=== PATIENT | female | born 1975 | race African-American/Black ===

== ENCOUNTER 2016-11-20 23:43 | Inpatient (IN) | payer MEDICAID, OTHER ==
[~2016-11-20] VITALS: Ht 160 cm; Wt 96.2 kg
[2016-11-21] VITALS (17 sets, daily range): BP systolic 98–118; BP diastolic 52–76
[2016-11-21] MEDS ORDERED: PANTOPRAZOLE SODIUM 40 MG/VIAL IV STA (00:17)
[2016-11-21] MEDS ORDERED: SODIUM CHLORIDE 0.9% 1,000 ML IV ONE (00:17)
[2016-11-21] MEDS ORDERED: MORPHINE SULFATE 4 MG/ML CPJ (NOT FOR IM USE) IV STA (00:17)
[2016-11-21] MEDS ORDERED: ONDANSETRON HCL 4MG/2ML VIAL IV STA (00:17)
[2016-11-21 00:47] LABS: BASOPHILS % 0.5 % (0.0-2.0); HEMATOCRIT. 21.1 % (36.0-48.0); LYMPHOCYTES % 24.5 % (20.0-50.0); MEAN CORPUSCULAR HEMOGLOBIN 28.3 pg (28.0-32.0); MEAN CORPUSCULAR VOLUME 86.2 fL (81.0-99.0); MEAN PLATELET VOLUME 11.1 fl (7.4-10.4); MONOCYTES % 5.3 % (2.0-8.0); NEUTROPHILS % 69.7 % (40.0-76.0); PLATELET 145 x1000/uL (130-400); RED BLOOD CELL COUNT 2.45 mill/uL (4.2-5.4)
[2016-11-21 00:50] LABS: HEMOGLOBIN. 6.9 g/dL (12.0-16.0)
[2016-11-21 00:54] LABS: CHLORIDE 96 mEq/L (98-107)
[2016-11-21 00:55] LABS: INR 1.6; PROTHROMBIN TIME 17.1 sec (9.4-11.6)
[2016-11-21 01:02] LABS: CARBON DIOXIDE 21 mEq/L (21-32)
[2016-11-21] MEDS ORDERED: SODIUM CHLORIDE 0.9% 1,000 ML IV SCH ×2 (01:05→16:04)
[2016-11-21] MEDS: PANTOPRAZOLE SODIUM 40 MG/VIAL IV SCH (08:31)
[2016-11-21] MEDS ORDERED: DEXT 5%/0.45% NACL 1000ML 1,000 ML IV SCH (08:45)
[2016-11-21 10:03] LABS: BASOPHILS % 0.4 % (0.0-2.0); HEMATOCRIT. 24.7 % (36.0-48.0); HEMOGLOBIN. 8.3 g/dL (12.0-16.0); LYMPHOCYTES % 19.4 % (20.0-50.0); MEAN CORPUSCULAR HEMOGLOBIN 28.4 pg (28.0-32.0); MEAN CORPUSCULAR VOLUME 84.3 fL (81.0-99.0); MEAN PLATELET VOLUME 10.9 fl (7.4-10.4); MONOCYTES % 6.5 % (2.0-8.0); NEUTROPHILS % 73.7 % (40.0-76.0); PLATELET 105 x1000/uL (130-400); RED BLOOD CELL COUNT 2.93 mill/uL (4.2-5.4); RED CELL DISTRIBUTION WIDTH 15.7 % (11.6-14.6)
[2016-11-21 10:12] LABS: CARBON DIOXIDE 25 mEq/L (21-32); CHLORIDE 102 mEq/L (98-107)
[2016-11-21] MEDS ORDERED: SIMETHICONE 40 MG/0.6 ML 30ML ONE (11:28)
[2016-11-21] MEDS ORDERED: SODIUM CHLORIDE 0.9% 10ML VIAL ONE (11:28)
[2016-11-21] MEDS ORDERED: INFLUENZA VIRUS VACCINE 0.5ML SYR IM ONE (12:00)
[2016-11-21] MEDS ORDERED: FENTANYL CITRATE/PF 50MCG/ML 2ML VIAL ONE (15:01)
[2016-11-21] MEDS ORDERED: MIDAZOLAM HCL 5 MG/5 ML VIAL ONE ×3 (15:02→17:23)
[2016-11-21] MEDS ORDERED: DIPHENHYDRAMINE 50MG/ML VIAL ONE (15:02)
[2016-11-21] MEDS ORDERED: SUCCINYLCHOLINE CHLORIDE 200MG/10ML VIAL IV ONE (15:38)
[2016-11-21] MEDS ORDERED: PROPOFOL 200MG/20ML VIAL IV ONE (15:38)
[2016-11-21] MEDS ORDERED: LIDOCAINE HCL 1% 20ML VIAL (Pyxis) INJ ONE (15:38)
[2016-11-21] MEDS ORDERED: ONDANSETRON HCL 4MG/2ML VIAL IV PRN (16:15)
[2016-11-21] MEDS: HYDROMORPHONE HCL/PF 2MG/ML CPJ IV PRN ×2 (17:12→17:22)
[2016-11-21] MEDS ORDERED: MIDAZOLAM HCL 5 MG/5 ML VIAL IV ONE (17:14)
[2016-11-21] MEDS: PROPOFOL 10MG/ML 100ML 100 ML IV PRN (17:47)
[2016-11-21 18:21] LABS: BG CARBOXYHEMOGLOBIN 0.3 % (0.5-1.5); BG DEOXYHEMOGLOBIN 1.2 % (0.0-5.0); BG FRACTION INSPIRED OXYGEN 100; BG HCO3 ACT 19.4 mmol/L (22.0-26.0); BG OXYGEN SATURATION 98.8 % (92.0-98.5); BG OXYHEMOGLOBIN 97.5 % (94.0-97.0); BG PCO2 32.9 mmHg (35.0-45.0); BG PH 7.389 (7.350-7.450); BG PO2 368.2 mmHg (75.0-100.0); BG SAMPLE SITE RIGHT RADIAL; BG TIDAL VOLUME(mL) 500 mL; BG TOTAL HEMOGLOBIN 7.9 g/dL (12.0-18.0); BG VENT MODE VENT - A/C; BG VENT RATE 12 set
[2016-11-21] MEDS ORDERED: PROPOFOL 10MG/ML 100ML 100 ML IV PRN (20:45)
[2016-11-21] MEDS ORDERED: PANTOPRAZOLE SODIUM 40 MG/VIAL IV NR (20:45)
[2016-11-21] MEDS: DEXT 5%/0.9% NACL 1,000 ML IV SCH (21:47)
[2016-11-22] VITALS (45 sets, daily range): BP systolic 96–152; BP diastolic 64–122
[2016-11-22] MEDS: PROPOFOL 10MG/ML 100ML 100 ML IV PRN (02:09)
[2016-11-22 04:57] LABS: BASOPHILS % 0.3 % (0.0-2.0); EOSINOPHILS % 0.2 % (0.0-5.0); HEMATOCRIT. 28.3 % (36.0-48.0); HEMOGLOBIN. 9.9 g/dL (12.0-16.0); LYMPHOCYTES % 23.1 % (20.0-50.0); MEAN CORPUSCULAR HEMOGLOBIN 29.7 pg (28.0-32.0); MEAN PLATELET VOLUME 11.2 fl (7.4-10.4); MONOCYTES % 7.2 % (2.0-8.0); NEUTROPHILS % 69.2 % (40.0-76.0); PLATELET 99 x1000/uL (130-400); RED BLOOD CELL COUNT 3.32 mill/uL (4.2-5.4); RED CELL DISTRIBUTION WIDTH 15.1 % (11.6-14.6)
[2016-11-22 05:18] LABS: CARBON DIOXIDE 25 mEq/L (21-32); CHLORIDE 102 mEq/L (98-107); TOTAL IRON BINDING CAPACITY 170 ug/dL (250-450)
[2016-11-22 07:53] LABS: PHOSPHORUS 3.1 mg/dL (2.5-4.9)
[2016-11-22 08:54] LABS: BG BASE EXCESS -2.2 mmol/L (-2.0-2.0); BG CARBOXYHEMOGLOBIN 0.3 % (0.5-1.5); BG FRACTION INSPIRED OXYGEN 30; BG HCO3 ACT 20.2 mmol/L (22.0-26.0); BG METHEMOGLOBIN 0.3 % (0.0-1.5); BG OXYHEMOGLOBIN 96.4 % (94.0-97.0); BG PCO2 27.3 mmHg (35.0-45.0); BG PH 7.488 (7.350-7.450); BG PO2 94.1 mmHg (75.0-100.0); BG SAMPLE SITE RIGHT BRACHIAL; BG TIDAL VOLUME(mL) 450 mL; BG TOTAL HEMOGLOBIN 10.5 g/dL (12.0-18.0); BG VENT MODE VENT - A/C; BG VENT RATE 12 set
[2016-11-22 10:06] LABS: CLARITY URINE CLEAR (CLEAR); COLOR URINE DARK YELLOW (YELLOW); GLUCOSE URINE NEGATIVE (NEGATIVE); KETONES URINE NEGATIVE (NEGATIVE); LEUKOCYTE ESTERASE URINE TRACE (NEGATIVE); NITRITE URINE NEGATIVE (NEGATIVE); OCCULT BLOOD URINE NEGATIVE (NEGATIVE); PH URINE 5.5 (4.5-8.0); PROTEIN URINE NEGATIVE (NEGATIVE); SPECIFIC GRAVITY URINE 1.022 (1.005-1.030)
[2016-11-22] MEDS: PANTOPRAZOLE SODIUM 40 MG/VIAL IV SCH ×2 (10:07→20:14)
[2016-11-22] MEDS: DEXT 5%/0.9% NACL 1,000 ML IV SCH ×2 (10:08→19:29)
[2016-11-22 10:15] LABS: *AMPHETAMINES SCREEN URINE NEGATIVE (NEGATIVE); *BARBITURATES SCREEN URINE NEGATIVE (NEGATIVE); *COCAINE SCREEN URINE NEGATIVE (NEGATIVE); METHADONE URINE SCREEN NEGATIVE (NEGATIVE); PHENCYCLIDINE URINE SCREEN NEGATIVE (NEGATIVE)
[2016-11-22] MEDS ORDERED: PIPERACILLIN/TAZ 3.375G PREMIX 50 ML IV SCH (10:15)
[2016-11-22] MEDS: QUETIAPINE FUMARATE 25MG TABLET PO SCH ×2 (10:15→20:01)
[2016-11-22 10:16] LABS: *BENZODIAZEPINES SCREEN URINE PRESUMTIVE POSITIVE (NEGATIVE); OPIATES URINE SCREEN PRESUMTIVE POSITIVE (NEGATIVE)
[2016-11-22 10:16] LABS: AMMONIA 302 uMol/L (<32)
[2016-11-22 10:17] LABS: CANNABINOID URINE SCREEN PRESUMTIVE POSITIVE (NEGATIVE)
[2016-11-22] MEDS: OCTREOTIDE 1,000 MCG in SODIUM CHLORIDE 0.9% 98 ML IV SCH (11:32)
[2016-11-22] MEDS: FENTANYL CITRATE/PF 500 MCG in SODIUM CHLORIDE 0.9% 40 ML IV PRN ×4 (11:33→20:50)
[2016-11-22] MEDS ORDERED: OCTREOTIDE ACETATE 100 MCG/ML 1ML IV SCH (12:00)
[2016-11-22] MEDS: LORAZEPAM 2MG/ML CPJ IV PRN ×2 (12:16→18:21)
[2016-11-22] MEDS: LEVOFLOXACIN 500MG PREMIX 100 ML IV SCH (12:16)
[2016-11-22] MEDS ORDERED: LACTULOSE 300 ML in WATER FOR INJECTION,STERILE 700 ML PR SCH (13:00)
[2016-11-22] MEDS: METRONIDAZOLE 500 MG PREMIX 100 ML IV SCH ×2 (13:04→21:05)
[2016-11-22 13:16] LABS: HEPATITIS B SURFACE ANTIGEN NEGATIVE
[2016-11-22 13:44] LABS: HEPATITIS B CORE AB IGM NEGATIVE
[2016-11-22 13:46] LABS: HEPATITIS A AB IGM NEGATIVE (NEGATIVE)
[2016-11-22 15:27] LABS: HEMATOCRIT 29.6 % (36.0-48.0); HEMOGLOBIN 10.1 g/dL (12.0-16.0)
[2016-11-22] MEDS: IPRATROPIUM/ALBUTEROL 0.5-3(2.5)MG/3ML NEB HHN PRN (20:05)
[2016-11-23] VITALS (49 sets, daily range): BP systolic 125–159; BP diastolic 80–111
[2016-11-23 00:01] LABS: HEMATOCRIT 30.2 % (36.0-48.0); HEMOGLOBIN 10.4 g/dL (12.0-16.0)
[2016-11-23] MEDS: LORAZEPAM 2MG/ML CPJ IV PRN ×3 (00:19→21:05)
[2016-11-23] MEDS: FENTANYL 500 MCG in SODIUM CHLORIDE 0.9% 50 ML IV PRN ×3 (01:03→20:25)
[2016-11-23] MEDS: DEXT 5%/0.9% NACL 1,000 ML IV SCH ×3 (02:11→18:10)
[2016-11-23] MEDS: OCTREOTIDE 1,000 MCG in SODIUM CHLORIDE 0.9% 98 ML IV SCH (04:01)
[2016-11-23] MEDS: METRONIDAZOLE 500 MG PREMIX 100 ML IV SCH ×3 (05:23→21:05)
[2016-11-23 06:19] LABS: BASOPHILS % 0.4 % (0.0-2.0); EOSINOPHILS % 0.2 % (0.0-5.0); HEMATOCRIT. 28.3 % (36.0-48.0); HEMOGLOBIN. 9.6 g/dL (12.0-16.0); LYMPHOCYTES % 16.6 % (20.0-50.0); MEAN CORPUSCULAR HEMOGLOBIN 29.8 pg (28.0-32.0); MEAN CORPUSCULAR VOLUME 88.1 fL (81.0-99.0); MEAN PLATELET VOLUME 10.6 fl (7.4-10.4); MONOCYTES % 10.4 % (2.0-8.0); NEUTROPHILS % 72.4 % (40.0-76.0); PLATELET 143 x1000/uL (130-400); RED BLOOD CELL COUNT 3.21 mill/uL (4.2-5.4); RED CELL DISTRIBUTION WIDTH 15.5 % (11.6-14.6)
[2016-11-23 06:20] LABS: CARBON DIOXIDE 22 mEq/L (21-32); CHLORIDE 108 mEq/L (98-107)
[2016-11-23] MEDS: QUETIAPINE FUMARATE 25MG TABLET PO SCH ×2 (08:36→20:44)
[2016-11-23] MEDS: PANTOPRAZOLE SODIUM 40 MG/VIAL IV SCH ×2 (08:37→20:24)
[2016-11-23] MEDS: LACTULOSE 300 ML in WATER FOR INJECTION,STERILE 700 ML PR SCH (08:49)
[2016-11-23] MEDS: IPRATROPIUM/ALBUTEROL 0.5-3(2.5)MG/3ML NEB HHN PRN (09:21)
[2016-11-23 09:24] LABS: BG BASE EXCESS -1.2 mmol/L (-2.0-2.0); BG CARBOXYHEMOGLOBIN 0.3 % (0.5-1.5); BG DEOXYHEMOGLOBIN 4.5 % (0.0-5.0); BG FRACTION INSPIRED OXYGEN 30; BG HCO3 ACT 22.5 mmol/L (22.0-26.0); BG METHEMOGLOBIN 0.1 % (0.0-1.5); BG OXYGEN SATURATION 95.5 % (92.0-98.5); BG OXYHEMOGLOBIN 95.1 % (94.0-97.0); BG PCO2 33.9 mmHg (35.0-45.0); BG PO2 86.2 mmHg (75.0-100.0); BG SAMPLE SITE RIGHT RADIAL; BG TIDAL VOLUME(mL) 450 mL; BG TOTAL HEMOGLOBIN 9.9 g/dL (12.0-18.0); BG VENT MODE VENT - A/C; BG VENT RATE 12 set
[2016-11-23 09:47] LABS: AMMONIA 147 uMol/L (<32)
[2016-11-23] MEDS: LEVOFLOXACIN 500MG PREMIX 100 ML IV SCH (12:11)
[2016-11-23 14:40] LABS: HEMATOCRIT 27.5 % (36.0-48.0); HEMOGLOBIN 9.3 g/dL (12.0-16.0)
[2016-11-24] VITALS (57 sets, daily range): BP systolic 119–173; BP diastolic 87–129
[2016-11-24] MEDS: DEXT 5%/0.9% NACL 1,000 ML IV SCH ×3 (01:56→17:08)
[2016-11-24] MEDS: OCTREOTIDE 1,000 MCG in SODIUM CHLORIDE 0.9% 98 ML IV SCH (01:56)
[2016-11-24] MEDS: FENTANYL 500 MCG in SODIUM CHLORIDE 0.9% 50 ML IV PRN ×3 (03:54→19:42)
[2016-11-24] MEDS: METRONIDAZOLE 500 MG PREMIX 100 ML IV SCH ×3 (05:33→20:59)
[2016-11-24] MEDS: LORAZEPAM 2MG/ML CPJ IV PRN ×4 (05:39→22:09)
[2016-11-24 06:12] LABS: BASOPHILS % 0.6 % (0.0-2.0); EOSINOPHILS % 0.5 % (0.0-5.0); HEMATOCRIT. 31.2 % (36.0-48.0); HEMOGLOBIN. 10.2 g/dL (12.0-16.0); LYMPHOCYTES % 16.3 % (20.0-50.0); MEAN CORPUSCULAR HEMOGLOBIN 29.9 pg (28.0-32.0); MEAN CORPUSCULAR VOLUME 91.3 fL (81.0-99.0); MEAN PLATELET VOLUME 10.9 fl (7.4-10.4); MONOCYTES % 13.7 % (2.0-8.0); NEUTROPHILS % 68.9 % (40.0-76.0); PLATELET 133 x1000/uL (130-400); RED BLOOD CELL COUNT 3.42 mill/uL (4.2-5.4); RED CELL DISTRIBUTION WIDTH 16.6 % (11.6-14.6)
[2016-11-24 06:43] LABS: CHLORIDE 113 mEq/L (98-107)
[2016-11-24 06:54] LABS: CARBON DIOXIDE 22 mEq/L (21-32)
[2016-11-24 07:10] LABS: AMMONIA 91 uMol/L (<32)
[2016-11-24] MEDS: QUETIAPINE FUMARATE 25MG TABLET PO SCH ×2 (09:00→21:00)
[2016-11-24] MEDS: PANTOPRAZOLE SODIUM 40 MG/VIAL IV SCH ×2 (09:07→20:59)
[2016-11-24 09:09] LABS: BG BASE EXCESS -2.9 mmol/L (-2.0-2.0); BG CARBOXYHEMOGLOBIN 0.3 % (0.5-1.5); BG DEOXYHEMOGLOBIN 4.5 % (0.0-5.0); BG FRACTION INSPIRED OXYGEN 30; BG HCO3 ACT 21.8 mmol/L (22.0-26.0); BG METHEMOGLOBIN 0.3 % (0.0-1.5); BG OXYGEN SATURATION 95.5 % (92.0-98.5); BG OXYHEMOGLOBIN 94.9 % (94.0-97.0); BG PCO2 37.5 mmHg (35.0-45.0); BG PH 7.383 (7.350-7.450); BG PO2 82.7 mmHg (75.0-100.0); BG SAMPLE SITE RIGHT RADIAL; BG TIDAL VOLUME(mL) 450 mL; BG TOTAL HEMOGLOBIN 9.9 g/dL (12.0-18.0); BG VENT MODE VENT - A/C; BG VENT RATE 12 set
[2016-11-24] MEDS: IPRATROPIUM/ALBUTEROL 0.5-3(2.5)MG/3ML NEB HHN PRN (09:19)
[2016-11-24] MEDS ORDERED: LIDOCAINE HCL 1% 20ML VIAL (Pyxis) INJ ONE (10:00)
[2016-11-24] MEDS: LEVOFLOXACIN 500MG PREMIX 100 ML IV SCH (11:13)
[2016-11-24] MEDS: LACTULOSE 300 ML in WATER FOR INJECTION,STERILE 700 ML PR SCH (11:20)
[2016-11-24] MEDS ORDERED: FAT EMULSIONS 500 ML IV SCH (21:00)
[2016-11-25] VITALS (48 sets, daily range): BP systolic 121–167; BP diastolic 80–121
[2016-11-25] MEDS: OCTREOTIDE 1,000 MCG in SODIUM CHLORIDE 0.9% 98 ML IV SCH ×2 (00:18→18:15)
[2016-11-25] MEDS: DEXT 5%/0.9% NACL 1,000 ML IV SCH ×3 (00:41→17:32)
[2016-11-25] MEDS: LORAZEPAM 2MG/ML CPJ IV PRN ×3 (01:48→14:53)
[2016-11-25] MEDS: FENTANYL 500 MCG in SODIUM CHLORIDE 0.9% 50 ML IV PRN (02:37)
[2016-11-25] MEDS: METRONIDAZOLE 500 MG PREMIX 100 ML IV SCH ×3 (04:52→21:24)
[2016-11-25 06:54] LABS: CARBON DIOXIDE 20 mEq/L (21-32); CHLORIDE 117 mEq/L (98-107)
[2016-11-25 07:49] LABS: BASOPHILS % 0.4 % (0.0-2.0); EOSINOPHILS % 0.8 % (0.0-5.0); HEMATOCRIT. 26.5 % (36.0-48.0); LYMPHOCYTES % 23.1 % (20.0-50.0); MEAN CORPUSCULAR HEMOGLOBIN 30.4 pg (28.0-32.0); MEAN CORPUSCULAR VOLUME 89.3 fL (81.0-99.0); MEAN PLATELET VOLUME 9.5 fl (7.4-10.4); MONOCYTES % 14.8 % (2.0-8.0); NEUTROPHILS % 60.9 % (40.0-76.0); PLATELET 124 x1000/uL (130-400); RED BLOOD CELL COUNT 2.96 mill/uL (4.2-5.4); RED CELL DISTRIBUTION WIDTH 16.5 % (11.6-14.6)
[2016-11-25 08:40] LABS: AMMONIA 89 uMol/L (<32)
[2016-11-25] MEDS: QUETIAPINE FUMARATE 25MG TABLET PO SCH ×3 (09:00→21:00)
[2016-11-25] MEDS: PANTOPRAZOLE SODIUM 40 MG/VIAL IV SCH ×2 (09:14→20:41)
[2016-11-25] MEDS: LACTULOSE 300 ML in WATER FOR INJECTION,STERILE 700 ML PR SCH (09:23)
[2016-11-25] MEDS: FENTANYL CITRATE/PF 1,000 MCG in SODIUM CHLORIDE 0.9% 80 ML IV PRN ×2 (10:53→17:42)
[2016-11-25] MEDS: LEVOFLOXACIN 500MG PREMIX 100 ML IV SCH (10:57)
[2016-11-25 12:43] LABS: HCG SCREEN NEGATIVE
[2016-11-25] MEDS: BLOOD SUGAR DIAGNOSTIC STRIP TEST SCH ×2 (17:32→23:22)
[2016-11-25] MEDS ORDERED: FAT EMULSIONS 500 ML IV SCH (21:00)
[2016-11-25] MEDS: TOTAL PARENTERAL NUTRITION 1,000 ML IV SCH (21:10)
[2016-11-26] VITALS (44 sets, daily range): BP systolic 116–168; BP diastolic 72–114
[2016-11-26] MEDS: FENTANYL CITRATE/PF 1,000 MCG in SODIUM CHLORIDE 0.9% 80 ML IV PRN ×4 (00:48→22:08)
[2016-11-26] MEDS: LORAZEPAM 2MG/ML CPJ IV PRN ×4 (02:11→23:21)
[2016-11-26] MEDS: DEXT 5%/0.9% NACL 1,000 ML IV SCH ×2 (02:15→11:25)
[2016-11-26] MEDS: METRONIDAZOLE 500 MG PREMIX 100 ML IV SCH ×3 (05:04→21:26)
[2016-11-26] MEDS: BLOOD SUGAR DIAGNOSTIC STRIP TEST SCH ×4 (05:16→23:13)
[2016-11-26 08:47] LABS: BG BASE EXCESS -1.7 mmol/L (-2.0-2.0); BG CARBOXYHEMOGLOBIN 0.1 % (0.5-1.5); BG DEOXYHEMOGLOBIN 4.3 % (0.0-5.0); BG FRACTION INSPIRED OXYGEN 30; BG HCO3 ACT 23.7 mmol/L (22.0-26.0); BG METHEMOGLOBIN 0.3 % (0.0-1.5); BG OXYGEN SATURATION 95.7 % (92.0-98.5); BG OXYHEMOGLOBIN 95.3 % (94.0-97.0); BG PCO2 43.2 mmHg (35.0-45.0); BG PH 7.358 (7.350-7.450); BG PO2 82.4 mmHg (75.0-100.0); BG SAMPLE SITE RIGHT BRACHIAL; BG TIDAL VOLUME(mL) 450 mL; BG VENT MODE VENT - A/C; BG VENT RATE 12 set
[2016-11-26] MEDS: QUETIAPINE FUMARATE 25MG TABLET PO SCH ×2 (08:58→20:37)
[2016-11-26] MEDS: PANTOPRAZOLE SODIUM 40 MG/VIAL IV SCH ×2 (09:01→20:36)
[2016-11-26] MEDS: LACTULOSE 300 ML in WATER FOR INJECTION,STERILE 700 ML PR SCH (09:33)
[2016-11-26 10:00] LABS: HEMATOCRIT. 24.4 % (36.0-48.0); HEMOGLOBIN. 8.3 g/dL (12.0-16.0); MEAN CORPUSCULAR HEMOGLOBIN 30.3 pg (28.0-32.0); MEAN CORPUSCULAR VOLUME 88.6 fL (81.0-99.0); PLATELET 109 x1000/uL (130-400); RED BLOOD CELL COUNT 2.76 mill/uL (4.2-5.4); RED CELL DISTRIBUTION WIDTH 16.5 % (11.6-14.6)
[2016-11-26 10:11] LABS: AMMONIA 40 uMol/L (<32)
[2016-11-26 10:45] LABS: CARBON DIOXIDE 24 mEq/L (21-32); CHLORIDE 120 mEq/L (98-107)
[2016-11-26] MEDS: LEVOFLOXACIN 500MG PREMIX 100 ML IV SCH (11:04)
[2016-11-26 11:10] LABS: NUCLEATED RED BLOOD CELLS 1 /100 WBC; PLATELET ESTIMATE DECREASED
[2016-11-26] MEDS: MORPHINE SULFATE 4 MG/ML CPJ (NOT FOR IM USE) IV PRN (12:48)
[2016-11-26] MEDS: OCTREOTIDE 1,000 MCG in SODIUM CHLORIDE 0.9% 98 ML IV SCH (14:39)
[2016-11-26 14:44] LABS: BG BASE EXCESS -2.7 mmol/L (-2.0-2.0); BG CARBOXYHEMOGLOBIN 0.3 % (0.5-1.5); BG DEOXYHEMOGLOBIN 3.4 % (0.0-5.0); BG FRACTION INSPIRED OXYGEN 30; BG HCO3 ACT 22.1 mmol/L (22.0-26.0); BG METHEMOGLOBIN 0.3 % (0.0-1.5); BG OXYGEN SATURATION 96.6 % (92.0-98.5); BG PH 7.382 (7.350-7.450); BG PO2 96.8 mmHg (75.0-100.0); BG PRESSURE SUPPORT 14; BG SAMPLE SITE RIGHT RADIAL; BG TIDAL VOLUME(mL) 450 mL; BG TOTAL HEMOGLOBIN 9.3 g/dL (12.0-18.0); BG VENT MODE VENT - SIMV; BG VENT RATE 8 set
[2016-11-26] MEDS ORDERED: KCL 20MEQ/100ML PREMIX 100 ML IV NR (16:00)
[2016-11-26] MEDS: TOTAL PARENTERAL NUTRITION 1,000 ML IV SCH (16:31)
[2016-11-26] MEDS ORDERED: FUROSEMIDE 20MG/2ML VIAL IVP NR (18:15)
[2016-11-26] MEDS: FAT EMULSIONS 250 ML IV SCH (20:37)
[2016-11-27] VITALS (44 sets, daily range): BP systolic 109–164; BP diastolic 59–114
[2016-11-27] MEDS: FENTANYL CITRATE/PF 1,000 MCG in SODIUM CHLORIDE 0.9% 80 ML IV PRN ×3 (04:56→21:34)
[2016-11-27] MEDS: METRONIDAZOLE 500 MG PREMIX 100 ML IV SCH ×3 (05:08→21:20)
[2016-11-27] MEDS: BLOOD SUGAR DIAGNOSTIC STRIP TEST SCH ×4 (05:18→23:59)
[2016-11-27 07:05] LABS: AMMONIA 72 uMol/L (<32)
[2016-11-27 08:26] LABS: HEMATOCRIT 25.8 % (36.0-48.0); HEMOGLOBIN 8.5 g/dL (12.0-16.0); MEAN CORPUSCULAR HEMOGLOBIN 29.4 pg (28.0-32.0); MEAN CORPUSCULAR VOLUME 89.3 fL (81.0-99.0); PLATELET 111 x1000/uL (130-400); RED BLOOD CELL COUNT 2.89 mill/uL (4.2-5.4); RED CELL DISTRIBUTION WIDTH 16.6 % (11.6-14.6)
[2016-11-27] MEDS: QUETIAPINE FUMARATE 25MG TABLET PO SCH ×2 (08:33→21:00)
[2016-11-27] MEDS: PANTOPRAZOLE SODIUM 40 MG/VIAL IV SCH ×2 (08:33→21:20)
[2016-11-27] MEDS: TOTAL PARENTERAL NUTRITION 1,000 ML IV SCH (08:35)
[2016-11-27 08:40] LABS: CARBON DIOXIDE 24 mEq/L (21-32); CHLORIDE 119 mEq/L (98-107); PHOSPHORUS 1.2 mg/dL (2.5-4.9)
[2016-11-27 08:59] LABS: BG BASE EXCESS -0.3 mmol/L (-2.0-2.0); BG CARBOXYHEMOGLOBIN 0.1 % (0.5-1.5); BG DEOXYHEMOGLOBIN 2.8 % (0.0-5.0); BG FRACTION INSPIRED OXYGEN 30; BG HCO3 ACT 24.6 mmol/L (22.0-26.0); BG METHEMOGLOBIN 0.3 % (0.0-1.5); BG OXYGEN SATURATION 97.2 % (92.0-98.5); BG OXYHEMOGLOBIN 96.8 % (94.0-97.0); BG PCO2 41.6 mmHg (35.0-45.0); BG PO2 96.5 mmHg (75.0-100.0); BG SAMPLE SITE RIGHT BRACHIAL; BG TIDAL VOLUME(mL) 450 mL; BG TOTAL HEMOGLOBIN 8.6 g/dL (12.0-18.0); BG VENT MODE VENT - A/C; BG VENT RATE 12 set
[2016-11-27] MEDS: LEVOFLOXACIN 500MG PREMIX 100 ML IV SCH (10:05)
[2016-11-27] MEDS: LACTULOSE 300 ML in WATER FOR INJECTION,STERILE 700 ML PR SCH (10:05)
[2016-11-27 11:08] LABS: BG CARBOXYHEMOGLOBIN 0.1 % (0.5-1.5); BG DEOXYHEMOGLOBIN 5.1 % (0.0-5.0); BG FRACTION INSPIRED OXYGEN 30; BG HCO3 ACT 23.2 mmol/L (22.0-26.0); BG METHEMOGLOBIN 2.7 % (0.0-1.5); BG OXYGEN SATURATION 94.8 % (92.0-98.5); BG OXYHEMOGLOBIN 92.1 % (94.0-97.0); BG PCO2 36.1 mmHg (35.0-45.0); BG PH 7.425 (7.350-7.450); BG PRESSURE SUPPORT 14; BG SAMPLE SITE RIGHT BRACHIAL; BG TIDAL VOLUME(mL) 450 mL; BG TOTAL HEMOGLOBIN 9.7 g/dL (12.0-18.0); BG VENT MODE VENT - SIMV; BG VENT RATE 10 set
[2016-11-27] MEDS: LORAZEPAM 2MG/ML CPJ IV PRN ×3 (11:55→23:51)
[2016-11-27] MEDS: IPRATROPIUM/ALBUTEROL 0.5-3(2.5)MG/3ML NEB HHN PRN (12:15)
[2016-11-27] MEDS: OCTREOTIDE 1,000 MCG in SODIUM CHLORIDE 0.9% 98 ML IV SCH (12:59)
[2016-11-27] MEDS ORDERED: POTASSIUM PHOS,M-BASIC-D-BASIC 15 MMOL in DEXTROSE 5% WATER 250 ML IV NR (15:00)
[2016-11-27] MEDS: IPRATROPIUM/ALBUTEROL 0.5-3(2.5)MG/3ML NEB HHN SCH ×3 (16:05→23:44)
[2016-11-27] MEDS: MORPHINE SULFATE 4 MG/ML CPJ (NOT FOR IM USE) IV PRN (17:08)
[2016-11-28] VITALS (46 sets, daily range): BP systolic 116–183; BP diastolic 40–117
[2016-11-28] MEDS ORDERED: FENTANYL CITRATE/PF 1,000 MCG in SODIUM CHLORIDE 0.9% 80 ML IV PRN (01:15)
[2016-11-28] MEDS: MORPHINE SULFATE 4 MG/ML CPJ (NOT FOR IM USE) IV PRN ×2 (01:48→20:41)
[2016-11-28] MEDS: LORAZEPAM 2MG/ML CPJ IV PRN ×3 (02:45→22:06)
[2016-11-28] MEDS: TOTAL PARENTERAL NUTRITION 1,000 ML IV SCH ×2 (03:37→21:44)
[2016-11-28] MEDS: IPRATROPIUM/ALBUTEROL 0.5-3(2.5)MG/3ML NEB HHN SCH ×5 (04:18→20:16)
[2016-11-28] MEDS: BLOOD SUGAR DIAGNOSTIC STRIP TEST SCH ×3 (06:02→18:02)
[2016-11-28] MEDS: METRONIDAZOLE 500 MG PREMIX 100 ML IV SCH ×3 (06:04→22:00)
[2016-11-28 06:16] LABS: HEMATOCRIT. 24.6 % (36.0-48.0); HEMOGLOBIN. 8.1 g/dL (12.0-16.0); MEAN CORPUSCULAR HEMOGLOBIN 29.6 pg (28.0-32.0); MEAN CORPUSCULAR VOLUME 89.5 fL (81.0-99.0); MEAN PLATELET VOLUME 9.9 fl (7.4-10.4); PLATELET 104 x1000/uL (130-400); RED BLOOD CELL COUNT 2.74 mill/uL (4.2-5.4); RED CELL DISTRIBUTION WIDTH 16.9 % (11.6-14.6)
[2016-11-28 06:31] LABS: AMMONIA 45 uMol/L (<32)
[2016-11-28 06:33] LABS: CARBON DIOXIDE 25 mEq/L (21-32); CHLORIDE 118 mEq/L (98-107)
[2016-11-28] MEDS: QUETIAPINE FUMARATE 25MG TABLET PO SCH ×2 (08:37→21:00)
[2016-11-28 08:51] LABS: BG BASE EXCESS -0.2 mmol/L (-2.0-2.0); BG CARBOXYHEMOGLOBIN 0.3 % (0.5-1.5); BG DEOXYHEMOGLOBIN 2.9 % (0.0-5.0); BG FRACTION INSPIRED OXYGEN 30; BG HCO3 ACT 24.4 mmol/L (22.0-26.0); BG METHEMOGLOBIN 0.7 % (0.0-1.5); BG OXYGEN SATURATION 97.1 % (92.0-98.5); BG OXYHEMOGLOBIN 96.1 % (94.0-97.0); BG PCO2 39.6 mmHg (35.0-45.0); BG PH 7.408 (7.350-7.450); BG PRESSURE SUPPORT 14; BG SAMPLE SITE RIGHT RADIAL; BG TIDAL VOLUME(mL) 450 mL; BG TOTAL HEMOGLOBIN 8.7 g/dL (12.0-18.0); BG VENT MODE VENT - SIMV; BG VENT RATE 8 set
[2016-11-28] MEDS: PANTOPRAZOLE SODIUM 40 MG/VIAL IV SCH ×2 (09:18→21:20)
[2016-11-28] MEDS: LACTULOSE 300 ML in WATER FOR INJECTION,STERILE 700 ML PR SCH (09:18)
[2016-11-28] MEDS: OCTREOTIDE 1,000 MCG in SODIUM CHLORIDE 0.9% 98 ML IV SCH (09:40)
[2016-11-28] MEDS: LEVOFLOXACIN 500MG PREMIX 100 ML IV SCH (11:00)
[2016-11-28] MEDS: ACETYLCYSTEINE 100MG/ML 10% VIAL 4ML INH SCH ×3 (11:37→20:39)
[2016-11-28 15:20] LABS: PLATELET ESTIMATE SLIGHTLY DECREASED
[2016-11-28] MEDS: FAT EMULSIONS 250 ML IV SCH (21:19)
[2016-11-29] VITALS (36 sets, daily range): BP systolic 110–175; BP diastolic 72–126
[2016-11-29] MEDS: IPRATROPIUM/ALBUTEROL 0.5-3(2.5)MG/3ML NEB HHN SCH ×7 (00:41→20:48)
[2016-11-29] MEDS: ACETYLCYSTEINE 100MG/ML 10% VIAL 4ML INH SCH ×5 (01:34→15:32)
[2016-11-29] MEDS: LORAZEPAM 2MG/ML CPJ IV PRN (02:13)
[2016-11-29] MEDS: MORPHINE SULFATE 4 MG/ML CPJ (NOT FOR IM USE) IV PRN (04:16)
[2016-11-29] MEDS: OCTREOTIDE 1,000 MCG in SODIUM CHLORIDE 0.9% 98 ML IV SCH (04:57)
[2016-11-29] MEDS: METRONIDAZOLE 500 MG PREMIX 100 ML IV SCH ×2 (05:38→13:28)
[2016-11-29 06:30] LABS: AMMONIA 37 uMol/L (<32)
[2016-11-29 08:17] LABS: BASOPHILS % 0.6 % (0.0-2.0); EOSINOPHILS % 1.6 % (0.0-5.0); HEMATOCRIT. 25.6 % (36.0-48.0); HEMOGLOBIN. 8.3 g/dL (12.0-16.0); LYMPHOCYTES % 16.7 % (20.0-50.0); MEAN CORPUSCULAR VOLUME 89.5 fL (81.0-99.0); MEAN PLATELET VOLUME 10.5 fl (7.4-10.4); MONOCYTES % 13.6 % (2.0-8.0); NEUTROPHILS % 67.5 % (40.0-76.0); PLATELET 93 x1000/uL (130-400); RED BLOOD CELL COUNT 2.86 mill/uL (4.2-5.4)
[2016-11-29 08:31] LABS: CHLORIDE 117 mEq/L (98-107)
[2016-11-29 08:37] LABS: CARBON DIOXIDE 22 mEq/L (21-32)
[2016-11-29] MEDS ORDERED: BLOOD SUGAR DIAGNOSTIC STRIP TEST SCH (09:00)
[2016-11-29] MEDS: PANTOPRAZOLE SODIUM 40 MG/VIAL IV SCH (09:25)
[2016-11-29] MEDS: QUETIAPINE FUMARATE 25MG TABLET PO SCH ×2 (09:25→17:23)
[2016-11-29] MEDS: RIFAXIMIN 550 MG TABLET PO SCH ×2 (09:27→23:00)
[2016-11-29] MEDS ORDERED: LORAZEPAM 2MG/ML CPJ IV PRN (10:15)
[2016-11-29] MEDS: PROPRANOLOL HCL 10MG TABLET PO SCH ×2 (10:50→21:54)
[2016-11-29] MEDS: LEVOFLOXACIN 500MG PREMIX 100 ML IV SCH (11:14)
[2016-11-29] MEDS: PANTOPRAZOLE 40MG DR TABLET PO SCH ×2 (13:00→21:54)
[2016-11-29] MEDS ORDERED: DEXTROSE 50% WATER 50ML SYRINGE IV PRN (13:30)
[2016-11-29] MEDS ORDERED: LACTULOSE 20G/30ML UDC PO SCH (14:00)
[2016-11-29] MEDS: BLOOD SUGAR DIAGNOSTIC STRIP TEST SCH ×2 (17:02→21:54)
[2016-11-29] MEDS: INSULIN LISPRO 100 UNITS/ML SUBCUT SCH ×2 (17:12→21:00)
[2016-11-29] MEDS: LACTULOSE 20G/30ML UDC PO SCH (17:23)
[2016-11-29] MEDS ORDERED: QUETIAPINE FUMARATE 25MG TABLET PO SCH (21:00)
[2016-11-30] VITALS (17 sets, daily range): BP systolic 89–145; BP diastolic 15–86
[2016-11-30] MEDS: IPRATROPIUM/ALBUTEROL 0.5-3(2.5)MG/3ML NEB HHN SCH ×6 (00:22→21:08)
[2016-11-30] MEDS: METRONIDAZOLE 500 MG PREMIX 100 ML IV SCH (03:36)
[2016-11-30] MEDS: PANTOPRAZOLE 40MG DR TABLET PO SCH ×2 (06:13→21:31)
[2016-11-30 06:25] LABS: AMMONIA 18 uMol/L (<32)
[2016-11-30] MEDS: INSULIN LISPRO 100 UNITS/ML SUBCUT SCH ×4 (06:47→21:00)
[2016-11-30] MEDS: BLOOD SUGAR DIAGNOSTIC STRIP TEST SCH ×4 (06:47→21:31)
[2016-11-30] MEDS: ACETYLCYSTEINE 100MG/ML 10% VIAL 4ML INH SCH ×4 (08:35→21:08)
[2016-11-30] MEDS: QUETIAPINE FUMARATE 25MG TABLET PO SCH ×2 (09:23→16:56)
[2016-11-30] MEDS: RIFAXIMIN 550 MG TABLET PO SCH ×2 (09:23→21:31)
[2016-11-30] MEDS: LACTULOSE 20G/30ML UDC PO SCH ×2 (09:23→16:56)
[2016-11-30] MEDS: PROPRANOLOL HCL 10MG TABLET PO SCH ×2 (09:36→21:26)
[2016-11-30] MEDS: LEVOFLOXACIN 500MG PREMIX 100 ML IV SCH (11:04)
[2016-12-01] VITALS (14 sets, daily range): BP systolic 88–119; BP diastolic 53–81
[2016-12-01] MEDS: IPRATROPIUM/ALBUTEROL 0.5-3(2.5)MG/3ML NEB HHN SCH ×3 (00:58→07:33)
[2016-12-01] MEDS: ACETYLCYSTEINE 100MG/ML 10% VIAL 4ML INH SCH ×2 (00:58→04:34)
[2016-12-01] MEDS: BLOOD SUGAR DIAGNOSTIC STRIP TEST SCH ×3 (06:54→16:07)
[2016-12-01] MEDS: PANTOPRAZOLE 40MG DR TABLET PO SCH (06:57)
[2016-12-01] MEDS: INSULIN LISPRO 100 UNITS/ML SUBCUT SCH ×3 (07:20→16:07)
[2016-12-01] MEDS: PROPRANOLOL HCL 10MG TABLET PO SCH (09:00)
[2016-12-01] MEDS: LACTULOSE 20G/30ML UDC PO SCH ×2 (09:55→16:09)
[2016-12-01] MEDS: QUETIAPINE FUMARATE 25MG TABLET PO SCH ×2 (09:55→16:09)
[2016-12-01] MEDS: RIFAXIMIN 550 MG TABLET PO SCH (09:55)
[2016-12-01] MEDS: LEVOFLOXACIN 500MG PREMIX 100 ML IV SCH (09:56)
[2016-12-01] MEDS ORDERED: IPRATROPIUM/ALBUTEROL 0.5-3(2.5)MG/3ML NEB HHN SCH (17:00)
== END 2016-12-01 16:53 | DRG 950 ==
LOC: ER 23:50 → 5WST 11-21 01:07 → EDBEDREQ 11-21 01:12 → ENRESERV 11-21 01:19 → CVICU 11-21 20:04 → 3WST 11-29 16:40
PROVIDERS: ADMIT Hospitalist; ATTEND Hospitalist
PROC: 5A1955Z Respiratory Ventilation, Greater than 96 Consecutive Hours (ICD-10-PCS; 2016-11-21)
PROC: 30233N1 Transfusion of Nonautologous Red Blood Cells into Peripheral Vein, Percutaneous Approach (ICD-10-PCS; 2016-11-21)
PROC: 0BH17EZ Insertion of Endotracheal Airway into Trachea, Via Natural or Artificial Opening (ICD-10-PCS; 2016-11-21)
PROC: 06L34CZ Occlusion of Esophageal Vein with Extraluminal Device, Percutaneous Endoscopic Approach (ICD-10-PCS; principal; 2016-11-21 16:00)
PROC: 02HV33Z Insertion of Infusion Device into Superior Vena Cava, Percutaneous Approach (ICD-10-PCS; 2016-11-24)
PROC: B548ZZA Ultrasonography of Superior Vena Cava, Guidance (ICD-10-PCS; 2016-11-24)
DX: K74.60 Unspecified cirrhosis of liver (principal); J96.00 Acute respiratory failure, unspecified whether with hypoxia or hypercapnia; J69.0 Pneumonitis due to inhalation of food and vomit; I85.11 Secondary esophageal varices with bleeding; E43 Unspecified severe protein-calorie malnutrition; I95.9 Hypotension, unspecified; K76.6 Portal hypertension; D68.9 Coagulation defect, unspecified; F10.231 Alcohol dependence with withdrawal delirium; K92.2 Gastrointestinal hemorrhage, unspecified; N17.9 Acute kidney failure, unspecified; E87.5 Hyperkalemia; K31.89 Other diseases of stomach and duodenum; D62 Acute posthemorrhagic anemia; K72.90 Hepatic failure, unspecified without coma; I10 Essential (primary) hypertension; M19.90 Unspecified osteoarthritis, unspecified site; B18.2 Chronic viral hepatitis C; D69.6 Thrombocytopenia, unspecified; Z79.1 Long term (current) use of non-steroidal anti-inflammatories (NSAID)
CPT/HCPCS: 36415; 36569; 36600; 70450; 71010; 76700; 76937; 80048; 80053; 80305; 81001; 82105; 82140; 82248; 82375; 82728; 82805; 82962; 83036; 83540; 83550; 83605; 83690; 83735; 83880; 84100; 84478; 84703; 85014; 85018; 85025; 85027; 85610; 86705; 86709; 86803; 86850; 86900; 86920; 87040; 87070; 87086; 87340; 92610; 94002; 94003; 94640; 94664; 96365; 96375; 97112; 97116; 97162; 97166; 97530; 97535; 99285; A4216; A6261; C1725; C9113; J0330; J1170; J1200; J1940; J1956; J2060; J2250; J2270; J2354; J2405; J2704; J3010; J3480; J3490; J7030; J7040; J7042; J7050; J7060; J7120; J7608; J7620; P9016; A4315